=== PATIENT | female | born 2000 | race Caucasian/White ===

== ENCOUNTER 2021-02-13 20:57 | Emergency (ER) | payer BC ==
--- NOTE | 2021-02-13 20:59 | ERPHSYRPT ---
- History of Present Illness Time Seen by Provider: 02/13/21 20:59 Historian: patient Exam Limitations: no limitations Physician History: This is a 20-year-old white female who has not felt well for the last few days. 3 days ago she began having weakness and decreased appetite. 2 days ago she started having pain in the paramedical region which is now localized in the right lower portion of her abdomen. She has not had a fever. She has not had diarrhea. She has had worsening pain. She still has her gallbladder and appendix in place. She has not had vomiting. Patient has a history of ovarian cysts. She does not have any vaginal bleeding or vaginal discharge. Patient denies chest pain. She denies shortness of breath. Patient states she is allergic to morphine but has had Dilaudid in the past without any problems or issues. Timing/Duration: day(s) (3) Activities at Onset: none Quality: aching Abdominal Pain Onset Location: RLQ Pain Radiation: no radiation Severity of Pain-Max: mild (To moderate) Severity of Pain-Current: mild (To moderate) Associated Symptoms: loss of appetite, nausea, weakness, No chest pain, No diaphoresis, No diarrhea, No fever/chills, No shortness of breath, No vomiting Previous symptoms: no prior history Allergies/Adverse Reactions: morphine Allergy (Verified 02/13/21 21:12) Home Medications: Medroxyprogesterone Acetate 1 ml IM CLARIFY 02/13/21 [History] methylPREDNISolone [Medrol] 1 tab PO CLARIFY 02/13/21 [History] Travel Risk - International Travel Have you traveled outside of the country in past 3 weeks: No - Coronavirus Screening Are you exhibiting any of the following symptoms?: No Close contact with a COVID-19 positive Pt in past 14-21 Days: No - Review of Systems Constitutional: Weakness Eyes: No Symptoms Ears, Nose, & Throat: No Symptoms Respiratory: No Symptoms Cardiac: No Symptoms Abdominal/Gastrointestinal: Abdominal Pain, Nausea (Right lower quadrant), No Vomiting, No Diarrhea, No Constipation Genitourinary Symptoms: No Symptoms Musculoskeletal: No Symptoms Skin: No Symptoms Neurological: No Symptoms Psychological: No Symptoms Endocrine: No Symptoms Hematologic/Lymphatic: No Symptoms Immunological/Allergic: No Symptoms All Other Systems: Reviewed and Negative - Past Medical History Pertinent Past Medical History: No - Past Surgical History Past Surgical History: No - Nursing Vital Signs Nursing Vital Signs: Initial Vital Signs Temperature 98.1 F 02/13/21 21:15 Pulse Rate 80 02/13/21 21:15 Respiratory Rate 20 02/13/21 21:15 Blood Pressure 145/82 02/13/21 21:15 O2 Sat by Pulse Oximetry 100 02/13/21 21:15 Pain Scale Pain Intensity 9 - Physical Exam General Appearance: no apparent distress, alert, anxiety Eye Exam: PERRL/EOMI, eyes nml inspection Ears, Nose, Throat Exam: normal ENT inspection, moist mucous membranes Neck Exam: normal inspection, non-tender, supple, full range of motion Respiratory Exam: normal breath sounds, lungs clear, airway intact, No chest tenderness, No respiratory distress Cardiovascular Exam: regular rate/rhythm, normal heart sounds, normal peripheral pulses Gastrointestinal/Abdomen Exam: soft, normal bowel sounds, tenderness (Lower quadrant), guarding, rebound (Right lower quadrant) Pelvic Exam: not done Rectal Exam: not done Back Exam: normal inspection, normal range of motion, No CVA tenderness Extremity Exam: normal inspection, normal range of motion, pelvis stable Neurologic Exam: alert, oriented x 3, cooperative, betting clerk II-XII nml as tested, normal mood/affect, nml cerebellar function, nml station & gait, sensation nml Skin Exam: normal color, warm, dry Lymphatic Exam: No adenopathy SpO2 Interpretation: normal O2 Delivery: Room Air - Course Nursing assessment & vital signs reviewed: Yes Ordered Tests: Active Orders 24 hr Category Date Time Status IV Insertion STAT Care 02/13/21 21:40 Active ABDOMEN AND PELVIS W/0 CONTRAS [CT] Stat Exams 02/13/21 21:41 Taken AMYLASE Stat Lab 02/13/21 21:50 Completed CBC W DIFF Stat Lab 02/13/21 21:50 Completed CMP Stat Lab 02/13/21 21:50 Completed HCG,QUALITATIVE URINE Stat Lab 02/13/21 21:45 Completed LIPASE Stat Lab 02/13/21 21:50 Completed Lactic Acid Stat Lab 02/13/21 22:20 Completed UA W/RFX UR CULTURE Stat Lab 02/13/21 21:45 Completed Medication Summary Discontinued Medications Generic Name Dose Route Start Last Admin Trade Name Freq PRN Reason Stop Dose Admin Hydromorphone HCl 0.5 mg 02/13/21 21:40 02/13/21 22:47 Hydromorphone 1 Mg/1ml Inj 1 Mg/Ml Syringe IV 02/13/21 21:41 0.5 mg STAT ONE Administration Hydromorphone HCl Confirm 02/13/21 22:42 Hydromorphone 1 Mg/1ml Inj 1 Mg/Ml Syringe Administered 02/13/21 22:43 Dose 1 mg .ROUTE .STK-MED ONE Sodium Chloride 1,000 mls @ 999 mls/hr 02/13/21 21:40 02/13/21 22:54 Sodium Chloride 0.9% 1000 Ml IV 02/13/21 22:40 999 mls/hr .Q1H1M STA Administration Sodium Chloride Confirm 02/13/21 22:42 Sodium Chloride 0.9% 1000 Ml Administered 02/13/21 22:43 Dose 1,000 mls @ ud .ROUTE .STK-MED ONE Ondansetron HCl 4 mg 02/13/21 21:40 02/13/21 22:43 Ondansetron Hcl 4 Mg/2 Ml Vial IV 02/13/21 21:41 4 mg STAT ONE Administration Ondansetron HCl Confirm 02/13/21 22:41 Ondansetron Hcl 4 Mg/2 Ml Vial Administered 02/13/21 22:42 Dose 4 mg .ROUTE .STK-MED ONE Lab/Rad Data: Laboratory Result Diagrams 02/13/21 21:50 02/13/21 21:50 Laboratory Results 02/13/21 02/13/21 02/13/21 Range/Units 22:20 21:50 21:50 WBC 7.9 (4.0-10.5) K/mm3 RBC 4.09 L (4.1-5.4) M/mm3 Hgb 13.2 (12.0-16.0) gm/dl Hct 40.5 (35-47) % MCV 99.0 (78-100) fl MCH 32.3 H (26-32) pg MCHC 32.6 (32-36) g/dl RDW 12.6 (11.5-14.0) % Plt Count 309 (150-450) K/mm3 MPV 10.4 (7.5-11.0) fl Gran % 79.9 H (36.0-66.0) % Eos # (Auto) 0 (0-0.5) Absolute Lymphs (auto) 1.21 (1.0-4.6) Absolute Monos (auto) 0.37 (0.0-1.3) Lymphocytes % 15.3 L (24.0-44.0) % Monocytes % 4.7 (0.0-12.0) % Eosinophils % 0.0 (0.00-5.0) % Basophils % 0.1 (0.0-0.4) % Absolute Granulocytes 6.33 (1.4-6.9) Basophils # 0.01 (0-0.4) Sodium 137 (137-145) mmol/L Potassium 4.5 (3.5-5.1) mmol/L Chloride 106 (98-107) mmol/L Carbon Dioxide 22 (22-30) mmol/L Anion Gap 13.5 (5-15) MEQ/L BUN 20 H (7-17) mg/dL Creatinine 0.71 (0.52-1.04) mg/dL Estimated GFR > 60.0 ML/MIN Glucose 118 H (74-106) mg/dL Lactic Acid 2.3 H (0.4-2.0) Calcium 9.5 (8.4-10.2) mg/dL Total Bilirubin 0.50 (0.2-1.3) mg/dL AST 19 (14-36) U/L ALT 13 (0-35) U/L Alkaline Phosphatase 88 (38-126) U/L Serum Total Protein 7.6 (6.3-8.2) g/dL Albumin 4.5 (3.5-5.0) g/dL Amylase 61 (30-110) U/L Lipase 68 (23-300) U/L Urine Color (YELLOW) Urine Appearance (CLEAR) Urine pH (5-6) Ur Specific [place] (1.005-1.025) Urine Protein (Negative) Urine Ketones (NEGATIVE) Urine Blood (0-5) Goyo/ul Urine Nitrite (NEGATIVE) Urine Bilirubin (NEGATIVE) Urine Urobilinogen (0-1) mg/dL Ur Leukocyte Esterase (NEGATIVE) Urine WBC (Auto) (0-5) /HPF Urine RBC (Auto) (0-2) /HPF U Epithel Cells (Auto) (FEW) /HPF Urine Bacteria (Auto) (NEGATIVE) /HPF Urine Mucus (Auto) (NEGATIVE) /HPF Urine Culture Reflexed (NO) Urine Glucose (NEGATIVE) mg/dL Urine HCG, Qual (Negative) 02/13/21 02/13/21 Range/Units 21:45 21:45 WBC (4.0-10.5) K/mm3 RBC (4.1-5.4) M/mm3 Hgb (12.0-16.0) gm/dl Hct (35-47) % MCV (78-100) fl MCH (26-32) pg MCHC (32-36) g/dl RDW (11.5-14.0) % Plt Count (150-450) K/mm3 MPV (7.5-11.0) fl Gran % (36.0-66.0) % Eos # (Auto) (0-0.5) Absolute Lymphs (auto) (1.0-4.6) Absolute Monos (auto) (0.0-1.3) Lymphocytes % (24.0-44.0) % Monocytes % (0.0-12.0) % Eosinophils % (0.00-5.0) % Basophils % (0.0-0.4) % Absolute Granulocytes (1.4-6.9) Basophils # (0-0.4) Sodium (137-145) mmol/L Potassium (3.5-5.1) mmol/L Chloride (98-107) mmol/L Carbon Dioxide (22-30) mmol/L Anion Gap (5-15) MEQ/L BUN (7-17) mg/dL Creatinine (0.52-1.04) mg/dL Estimated GFR ML/MIN Glucose (74-106) mg/dL Lactic Acid (0.4-2.0) Calcium (8.4-10.2) mg/dL Total Bilirubin (0.2-1.3) mg/dL AST (14-36) U/L ALT (0-35) U/L Alkaline Phosphatase (38-126) U/L Serum Total Protein (6.3-8.2) g/dL Albumin (3.5-5.0) g/dL Amylase (30-110) U/L Lipase (23-300) U/L Urine Color YELLOW (YELLOW) Urine Appearance CLEAR (CLEAR) Urine pH 6.0 (5-6) Ur Specific [place] 1.024 (1.005-1.025) Urine Protein NEGATIVE (Negative) Urine Ketones NEGATIVE (NEGATIVE) Urine Blood MODERATE (0-5) Goyo/ul Urine Nitrite NEGATIVE (NEGATIVE) Urine Bilirubin NEGATIVE (NEGATIVE) Urine Urobilinogen NEGATIVE (0-1) mg/dL Ur Leukocyte Esterase NEGATIVE (NEGATIVE) Urine WBC (Auto) NONE (0-5) /HPF Urine RBC (Auto) 0-2 (0-2) /HPF U Epithel Cells (Auto) NONE (FEW) /HPF Urine Bacteria (Auto) NONE (NEGATIVE) /HPF Urine Mucus (Auto) SLIGHT (NEGATIVE) /HPF Urine Culture Reflexed NO (NO) Urine Glucose NEGATIVE (NEGATIVE) mg/dL Urine HCG, Qual NEGATIVE (Negative) - Progress Progress: improved, re-examined Progress Note: 02/13/21 23:02 CAT scan of the abdomen and pelvis without contrast shows no acute findings. Specifically there is no evidence of appendicitis. The gallbladder and bile ducts are normal. The reproductive organs are unremarkable as visualized. Counseled pt/family regarding: lab results, diagnosis, need for follow-up, rad results - Departure Departure Disposition: Home Clinical Impression: Abdominal pain, Nausea Condition: Stable Critical Care Time: No Referrals: APRIL MONTES [Primary Care Provider] - Follow up/PCP as directed Additional Instructions: Drink plenty of clear liquids prior to advancing your diet. Follow-up with your primary care physician for further management. Prescriptions: Ondansetron ODT 4 MG [Zofran Odt 4 mg] 4 mg PO Q6H PRN PRN #10 tablet PRN Reason: Vomiting
[2021-02-13 21:30] VITALS: PULSE 80
[2021-02-13] MEDS ORDERED: Hydromorphone 1 mg/ml Injection IV ONE (21:40)
[2021-02-13] MEDS ORDERED: Sodium Chloride 0.9% 1000 ML 1,000 ML IV STA (21:40)
[2021-02-13] MEDS ORDERED: Zofran 4 MG/2 ML VIAL IV ONE (21:40)
[2021-02-13 21:57] LABS: Absolute Neutrophil Ct (ANC) 6.33 (1.4-6.9); Basophil (Absolute #) 0.01 (0-0.4); Eosinophil (Absolute #) 0 (0-0.5); Hematocrit 40.5 % (35-47); Hemoglobin 13.2 gm/dl (12.0-16.0); Lymphocyte (Absolute #) 1.21 (1.0-4.6); Lymphocytes % 15.3 % (24.0-44.0); Mean Corpuscular Hemoglobin 32.3 pg (26-32); Mean Corpuscular Hgb Concent. 32.6 g/dl (32-36); Mean Platelet Volume 10.4 fl (7.5-11.0); Monocyte (Absolute #) 0.37 (0.0-1.3); Monocytes % 4.7 % (0.0-12.0); Neutrophil % 79.9 % (36.0-66.0); Platelet Count 309 K/mm3 (150-450); Red Blood Count 4.09 M/mm3 (4.1-5.4); Red Cell Distribution Width 12.6 % (11.5-14.0); White Blood Count 7.9 K/mm3 (4.0-10.5)
[2021-02-13 22:04] LABS: Appearance CLEAR (CLEAR); Bilirubin NEGATIVE (NEGATIVE); Blood MODERATE Ery/ul (0-5); Glucose NEGATIVE (NEGATIVE); Ketones NEGATIVE (NEGATIVE); Leukocyte Esterase NEGATIVE (NEGATIVE); Mucus SLIGHT /HPF (NEGATIVE); Nitrite NEGATIVE (NEGATIVE); Protein,Urine Dip NEGATIVE (Negative); RBC 0-2 /HPF (0-2); Specific Gravity 1.024 (1.005-1.025); Urobilinogen NEGATIVE mg/dL (0-1)
[2021-02-13 22:09] LABS: ALBUMIN 4.5 g/dL (3.5-5.0); ALKALINE PHOSPHATASE 88 U/L (38-126); AMYLASE 61 U/L (30-110); ANION GAP 13.5 MEQ/L (5-15); BLOOD UREA NITROGEN 20 mg/dL (7-17); CHLORIDE 106 mmol/L (98-107); Calcium 9.5 mg/dL (8.4-10.2); Carbon Dioxide 22 mmol/L (22-30); Creatinine 1 0.71 mg/dL (0.52-1.04); EST GLOMERULAR FILTRATION RATE > 60.0 ML/MIN; Glucose 118 mg/dL (74-106); LIPASE 68 U/L (23-300); Potassium 4.5 mmol/L (3.5-5.1); SGOT/AST 19 U/L (14-36); SGPT/ALT 13 U/L (0-35); SODIUM 137 mmol/L (137-145); Total Protein 7.6 g/dL (6.3-8.2)
[2021-02-13] MEDS ORDERED: Zofran 4 MG/2 ML VIAL ONE (22:41)
[2021-02-13] MEDS ORDERED: Sodium Chloride 0.9% 1000 ML 1,000 ML ONE (22:42)
[2021-02-13] MEDS ORDERED: Hydromorphone 1 mg/ml Injection ONE (22:42)
[2021-02-14 00:14] VITALS: O2SAT 97
[2021-02-14 00:15] VITALS: BP 129/56
--- NOTE | 2021-02-14 08:46 | XRAY ---
Indication: Right lower quadrant pain. Multiple contiguous axial images obtained through the abdomen and pelvis without contrast. Comparison: None Lung bases are clear. Heart not enlarged. Stomach mildly distended with food/fluid. Noncontrasted stomach and bowel loops appear nonobstructed with normal appendix. There is mild diffuse scattered colonic fecal debris greatest in the ascending colon. Tiny right adnexa free fluid presumed physiologic from rupture/leaking cyst. No free air. Contracted gallbladder without gallstones. Nonobstructing left renal punctate calculus. Remaining liver, gallbladder, pancreas, spleen, adrenal glands, kidneys, ureters, bladder, uterus, and aorta are unremarkable for noncontrast exam. Osseous structures intact. Impression: 1. Mild diffuse fecal stasis and nonobstructing left renal punctate calculus. 2. Remaining CT abdomen/pelvis without contrast exam is negative. Comment: Preliminary interpretation made by [facility]. No critical discrepancy.
== END 2021-02-14 00:15 | disposition home or self-care (01) ==
LOC: ED 20:57
DX: R10.31 Right lower quadrant pain (principal); R11.0 Nausea; R53.1 Weakness; Z79.52 Long term (current) use of systemic steroids
CPT/HCPCS: 36000; 36415; 74176; 80053; 81001; 82150; 83605; 83690; 84703; 85025; 96360; 96374; 96375; 99284; J1170; J2405

== ENCOUNTER 2022-02-28 10:12 | Emergency (ER) | payer BC ==
[2022-02-28 11:12] LABS: Absolute Neutrophil Ct (ANC) 5.19 x10^3/uL (1.4-6.9); Basophil (Absolute #) 0.03 x10^3/uL (0-0.4); Eosinophil % 0.1 % (0.00-5.0); Eosinophil (Absolute #) 0.01 x10^3/uL (0-0.5); Hematocrit 35.6 % (35-47); Hemoglobin 11.7 g/dL (12.0-16.0); Lymphocyte (Absolute #) 1.62 x10^3/uL (1.0-4.6); Lymphocytes % 22.6 % (24.0-44.0); Mean Cell Volume 96.2 fL (78-100); Mean Corpuscular Hemoglobin 31.6 pg (26-32); Mean Corpuscular Hgb Concent. 32.9 g/dL (32-36); Mean Platelet Volume 9.9 fL (7.5-11.0); Monocyte (Absolute #) 0.32 x10^3/uL (0.0-1.3); Monocytes % 4.5 % (0.0-12.0); Neutrophil % 72.3 % (36.0-66.0); Platelet Count 232 x10^3/uL (150-450); Red Cell Distribution Width 11.8 % (11.5-14.0); White Blood Count 7.2 x10^3/uL (4.0-10.5)
[2022-02-28] MEDS ORDERED: TORAdol 30 mg Injection IM ONE (11:15)
[2022-02-28 11:19] LABS: ADD URINE CULTURE? YES (NO); Appearance Clear (Clear); Bacteria Rare /HPF (None Seen); Bilirubin Negative (Negative); Blood Moderate (Negative); Epithelial Cells Few /HPF (None Seen); Glucose, Urine Negative (Negative); Hyaline Casts NONE SEEN /LPF (0-2); Ketones Trace (Negative); Leukocyte Esterase Trace (Negative); Nitrite Negative (Negative); Ph 5.5 (4.6-8.0); Protein,Urine Dip Negative (Negative); RBC 0-2 /HPF (0-5); Specific Gravity 1.025 (1.005-1.030); Urobilinogen 0.2 mg/dL (0.2)
[2022-02-28] MEDS ORDERED: TORAdol 30 mg Injection ONE (11:20)
--- NOTE | 2022-02-28 11:21 | ERPHSYRPT ---
- History of Present Illness Historian: patient Exam Limitations: no limitations Patient Subjective Stated Complaint: Abdominal pain Triage Nursing Assessment: Patient ambulated back to ED and transferred self to bed. Patient A+O X 3. Patient's skin pink, warm and dry. Patient complains of lower abdominal pain on and off since last Wed that keeps getting worse. Patient complains of constant sharp pain in lower abdomen 9/10. Abdomen soft and round with BS X 4. Patient complains of nausea, but denies vomiting today. Physician History: 21 yo wf w RLQ pain x 8 days. Pain is sharp, 9/10, and nothing makes it better or worse. pain does not radiate. She has had nausea, mild vomiting, but denies diarrhea/melena/hematochezia/dysuria/hematuria//fever/cough/coryza. She has had her gallbladder removed. Pt is finishing up Macrobid for a UTI. Timing/Duration: other (8 days) Activities at Onset: rest Quality: sharpness Abdominal Pain Onset Location: RLQ Pain Radiation: no radiation Severity of Pain-Max: severe Severity of Pain-Current: severe Modifying Factors: Improves With: nothing Associated Symptoms: denies symptoms, nausea, vomiting Previous symptoms: no prior history Allergies/Adverse Reactions: morphine Allergy (Verified 02/28/22 10:26) Home Medications: Medroxyprogesterone Acetate 1 ml IM CLARIFY 02/13/21 [History] Sertraline HCl [Zoloft] 1 tab PO HS 02/28/22 [History] Hx Tetanus, Diphtheria Vaccination/Date Given: Yes Hx Influenza Vaccination/Date Given: Yes Hx Pneumococcal Vaccination/Date Given: No Immunizations Up to Date: Yes Travel Risk - International Travel Have you traveled outside of the country in past 3 weeks: No - Coronavirus Screening Are you exhibiting any of the following symptoms?: No Close contact with a COVID-19 positive Pt in past 14-21 Days: No - Vaccine Status Have you recieved a Covid-19 vaccination: Yes [employer]: Modality - Vaccination Dates Date of 2cond Vaccination (if applicable): December 2020 - Review of Systems Constitutional: No Symptoms Eyes: No Symptoms Ears, Nose, & Throat: No Symptoms Respiratory: No Symptoms Cardiac: No Symptoms Abdominal/Gastrointestinal: No Symptoms, Abdominal Pain, Nausea, Vomiting Genitourinary Symptoms: No Symptoms Musculoskeletal: No Symptoms Skin: No Symptoms Neurological: No Symptoms Psychological: No Symptoms Endocrine: No Symptoms Hematologic/Lymphatic: No Symptoms Immunological/Allergic: No Symptoms - Past Medical History Pertinent Past Medical History: No Neurological History: No Pertinent History ENT History: No Pertinent History Cardiac History: No Pertinent History Respiratory History: Asthma Endocrine Medical History: No Pertinent History Musculoskeletal History: No Pertinent History GI Medical History: Gallbladder Disease History: Other Psycho-Social History: Anxiety Female Reproductive Disorders: No Pertinent History Other Medical History: Kidney stones - Past Surgical History Past Surgical History: No Neuro Surgical History: No Pertinent History Cardiac: No Pertinent History Respiratory: No Pertinent History Gastrointestinal: Exploratory Laparoscopy Genitourinary: No Pertinent History Musculoskeletal: Orthopedic Surgery Female Surgical History: No Pertinent History Other Surgical History: Upper GI surgery, lap to check for endometriosis - Social History Smoking Status: Never smoker Exposure to second hand smoke: Yes Drug Use: none Patient Lives Alone: No - Female History Hx Last Menstrual Period: depo Hx Now: No - Nursing Vital Signs Nursing Vital Signs: Initial Vital Signs Temperature 97.8 F 02/28/22 10:29 Pulse Rate 87 02/28/22 10:29 Respiratory Rate 18 02/28/22 10:29 Blood Pressure 134/79 02/28/22 10:29 O2 Sat by Pulse Oximetry 99 02/28/22 10:29 Pain Scale Pain Intensity 2 WNL - Physical Exam General Appearance: no apparent distress Eye Exam: PERRL/EOMI, eyes nml inspection Ears, Nose, Throat Exam: normal ENT inspection, TMs normal, pharynx normal, moist mucous membranes Neck Exam: normal inspection, non-tender, supple, full range of motion, No meningismus, No mass, No Brudzinski, No Kernig's, No carotid bruit Respiratory Exam: normal breath sounds, lungs clear, airway intact Cardiovascular Exam: regular rate/rhythm, normal heart sounds, normal peripheral pulses, No murmur Gastrointestinal/Abdomen Exam: soft, normal bowel sounds, tenderness (Mild RLQ TTP >RUQ TTP/No guarding or rebound) Back Exam: normal inspection, normal range of motion Extremity Exam: normal inspection, normal range of motion Neurologic Exam: alert, oriented x 3, cooperative, dairy specialist II-XII nml as tested, normal mood/affect, nml cerebellar function, nml station & gait, sensation nml, No motor deficits, No sensory deficit Skin Exam: normal color Lymphatic Exam: adenopathy SpO2 Interpretation: normal SpO2: 99 O2 Delivery: Room Air - Course Nursing assessment & vital signs reviewed: Yes - CT Exams Abdomen/Pelvis CT Interpretation: Discussed w/radiologist (Normal appendix/No ureterolithiasis) - Radiology Ultrasound Exam Pelvis Ultrasound: discussed w/radiologist (Fluid from possible ruptured cyst/Good blood flow B) Ordered Tests: Active Orders 24 hr Category Date Time Status ABDOMEN AND PELVIS W/0 CONTRAS [CT] Stat Exams 02/28/22 11:47 Completed PELVIS TRANS VAGINAL [US] Stat Exams 02/28/22 12:58 Completed AMYLASE Stat Lab 02/28/22 10:55 Completed CBC W DIFF Stat Lab 02/28/22 10:55 Completed CMP Stat Lab 02/28/22 10:55 Completed CULTURE,URINE Stat Lab 02/28/22 Received HCG QUALITATIVE,SERUM Stat Lab 02/28/22 10:55 Completed LIPASE Stat Lab 02/28/22 10:55 Completed UA W/RFX UR CULTURE Stat Lab 02/28/22 Completed Medication Summary Discontinued Medications Generic Name Dose Route Start Last Admin Trade Name Freq PRN Reason Stop Dose Admin Ceftriaxone Sodium 1,000 mg 02/28/22 13:58 02/28/22 14:03 Ceftriaxone Sodium 1000 Mg Inj Vial IM 02/28/22 13:59 1,000 mg STAT ONE Administration Ceftriaxone Sodium Confirm 02/28/22 14:02 Ceftriaxone Sodium 1000 Mg Inj Vial Administered 02/28/22 14:03 Dose 1,000 mg .ROUTE .STK-MED ONE Ketorolac Tromethamine 15 mg 02/28/22 11:15 02/28/22 11:21 Ketorolac Tromethamine 30 Mg/Ml Inj IM 02/28/22 11:16 15 mg STAT ONE Administration Ketorolac Tromethamine Confirm 02/28/22 11:20 Ketorolac Tromethamine 30 Mg/Ml Inj Administered 02/28/22 11:21 Dose 30 mg .ROUTE .STK-MED ONE Lidocaine HCl Confirm 02/28/22 14:03 Lidocaine Hcl 1% 20 Ml Mdv 20 Ml Ml Administered 02/28/22 14:04 Dose 3 ml .ROUTE .STK-MED ONE Lab/Rad Data: Laboratory Result Diagrams 02/28/22 10:55 02/28/22 10:55 Laboratory Results 01/02/28/22 02/28/22 Range/Units Unknown 10:55 10:55 WBC (4.0-10.5) x10^3/uL RBC (4.1-5.4) x10^6/uL Hgb (12.0-16.0) g/dL Hct (35-47) % MCV (78-100) fL MCH (26-32) pg MCHC (32-36) g/dL RDW (11.5-14.0) % Plt Count (150-450) x10^3/uL MPV (7.5-11.0) fL Gran % (36.0-66.0) % Immature Gran % (Auto) (0.00-0.4) % Nucleat RBC Rel Count (0.00-0.1) % Eos # (Auto) (0-0.5) x10^3/uL Immature Gran # (Auto) (0.00-0.03) x10^3u/L Absolute Lymphs (auto) (1.0-4.6) x10^3/uL Absolute Monos (auto) (0.0-1.3) x10^3/uL Absolute Nucleated RBC (0.00-0.01) x10^3u/L Lymphocytes % (24.0-44.0) % Monocytes % (0.0-12.0) % Eosinophils % (0.00-5.0) % Basophils % (0.0-0.4) % Absolute Granulocytes (1.4-6.9) x10^3/uL Basophils # (0-0.4) x10^3/uL Sodium 137 (137-145) mmol/L Potassium 4.1 (3.5-5.1) mmol/L Chloride 108 H (98-107) mmol/L Carbon Dioxide 25 (22-30) mmol/L Anion Gap 8.9 (5-15) MEQ/L BUN 16 (7-17) mg/dL Creatinine 0.59 (0.52-1.04) mg/dL Estimated GFR > 60.0 ML/MIN Glucose 89 (74-106) mg/dL Calcium 9.1 (8.4-10.2) mg/dL Total Bilirubin 0.50 (0.2-1.3) mg/dL AST 37 H (14-36) U/L ALT 35 (0-35) U/L Alkaline Phosphatase 85 (38-126) U/L Serum Total Protein 7.2 (6.3-8.2) g/dL Albumin 4.4 (3.5-5.0) g/dL Amylase 79 (30-110) U/L Lipase 35 (23-300) U/L Serum , Qual NEGATIVE (Negative) Urine Color Yellow (Yellow) Urine Appearance Clear (Clear) Urine pH 5.5 (4.6-8.0) Ur Specific [place] 1.025 (1.005-1.030) Urine Protein Negative (Negative) Urine Glucose (UA) Negative (Negative) mg/dL Urine Ketones Trace A (Negative) Urine Blood Moderate A (Negative) Urine Nitrite Negative (Negative) Urine Bilirubin Negative (Negative) Urine Urobilinogen 0.2 (0.2) mg/dL Ur Leukocyte Esterase Trace A (Negative) U Hyaline Cast (Auto) NONE SEEN (0-2) /LPF Urine Microscopic RBC 0-2 (0-5) /HPF Urine Microscopic WBC 3-5 (0-5) /HPF Ur Epithelial Cells Few (None Seen) /HPF Urine Bacteria Rare A (None Seen) /HPF Urine Culture Reflexed YES (NO) 02/28/22 Range/Units 10:55 WBC 7.2 (4.0-10.5) x10^3/uL RBC 3.70 L (4.1-5.4) x10^6/uL Hgb 11.7 L (12.0-16.0) g/dL Hct 35.6 (35-47) % MCV 96.2 (78-100) fL MCH 31.6 (26-32) pg MCHC 32.9 (32-36) g/dL RDW 11.8 (11.5-14.0) % Plt Count 232 (150-450) x10^3/uL MPV 9.9 (7.5-11.0) fL Gran % 72.3 H (36.0-66.0) % Immature Gran % (Auto) 0.1 (0.00-0.4) % Nucleat RBC Rel Count 0.0 (0.00-0.1) % Eos # (Auto) 0.01 (0-0.5) x10^3/uL Immature Gran # (Auto) 0.01 (0.00-0.03) x10^3u/L Absolute Lymphs (auto) 1.62 (1.0-4.6) x10^3/uL Absolute Monos (auto) 0.32 (0.0-1.3) x10^3/uL Absolute Nucleated RBC 0.00 (0.00-0.01) x10^3u/L Lymphocytes % 22.6 L (24.0-44.0) % Monocytes % 4.5 (0.0-12.0) % Eosinophils % 0.1 (0.00-5.0) % Basophils % 0.4 (0.0-0.4) % Absolute Granulocytes 5.19 (1.4-6.9) x10^3/uL Basophils # 0.03 (0-0.4) x10^3/uL Sodium (137-145) mmol/L Potassium (3.5-5.1) mmol/L Chloride (98-107) mmol/L Carbon Dioxide (22-30) mmol/L Anion Gap (5-15) MEQ/L BUN (7-17) mg/dL Creatinine (0.52-1.04) mg/dL Estimated GFR ML/MIN Glucose (74-106) mg/dL Calcium (8.4-10.2) mg/dL Total Bilirubin (0.2-1.3) mg/dL AST (14-36) U/L ALT (0-35) U/L Alkaline Phosphatase (38-126) U/L Serum Total Protein (6.3-8.2) g/dL Albumin (3.5-5.0) g/dL Amylase (30-110) U/L Lipase (23-300) U/L Serum , Qual (Negative) Urine Color (Yellow) Urine Appearance (Clear) Urine pH (4.6-8.0) Ur Specific [place] (1.005-1.030) Urine Protein (Negative) Urine Glucose (UA) (Negative) mg/dL Urine Ketones (Negative) Urine Blood (Negative) Urine Nitrite (Negative) Urine Bilirubin (Negative) Urine Urobilinogen (0.2) mg/dL Ur Leukocyte Esterase (Negative) U Hyaline Cast (Auto) (0-2) /LPF Urine Microscopic RBC (0-5) /HPF Urine Microscopic WBC (0-5) /HPF Ur Epithelial Cells (None Seen) /HPF Urine Bacteria (None Seen) /HPF Urine Culture Reflexed (NO) - Progress Progress: improved Progress Note: 02/28/22 13:59 Pain improved w 15mg IM toradol Appendix Normal on CT Ovaries w good blood flow B, so no evidence of torsion Small amount of cul de sac fluid which could be due to possible ruptured ovarian cyst UA w trace Leukocyte esterase and mod blood on dip and 3-5 WBC/0-2 RBC's/rare Bacteria which could be possible residual UTI so 1gm IM rocephin given No food or housing insecurities noted Nursing note and vital signs reviewed All labs CT scan of abdomen/Pelvic ultrasound results reviewed and shared w pt Nursing note and vital signs reviewed 02/28/22 14:03 02/28/22 14:04 02/28/22 14:59 Counseled pt/family regarding: lab results, diagnosis, need for follow-up, rad results - Departure Departure Disposition: Home Clinical Impression: Abdominal pain, Ruptured ovarian cyst, UTI (urinary tract infection) Condition: Stable Critical Care Time: No Referrals: APRIL MONTES [Primary Care Provider] - Follow up/PCP as directed Instructions: Urinary Tract Infection, Adult (DC), Severe Abdominal Pain, Adult (DC) Additional Instructions: Follow up with your family MD or Ob-director process engineering Lodine as needed for pain Finish up your antibiotic Return to ER for increasing pain or temperature greater than 100.5 Prescriptions: Etodolac 400 mg [Lodine 400 mg] 400 mg PO BIDPRN PRN #12 tablet PRN Reason: Pain
[2022-02-28 11:29] LABS: ALBUMIN 4.4 g/dL (3.5-5.0); ALKALINE PHOSPHATASE 85 U/L (38-126); AMYLASE 79 U/L (30-110); ANION GAP 8.9 MEQ/L (5-15); BLOOD UREA NITROGEN 16 mg/dL (7-17); CHLORIDE 108 mmol/L (98-107); Calcium 9.1 mg/dL (8.4-10.2); Carbon Dioxide 25 mmol/L (22-30); Creatinine 1 0.59 mg/dL (0.52-1.04); EST GLOMERULAR FILTRATION RATE > 60.0 ML/MIN; Glucose 89 mg/dL (74-106); LIPASE 35 U/L (23-300); Potassium 4.1 mmol/L (3.5-5.1); SGOT/AST 37 U/L (14-36); SGPT/ALT 35 U/L (0-35); SODIUM 137 mmol/L (137-145); Total Protein 7.2 g/dL (6.3-8.2)
--- NOTE | 2022-02-28 12:53 | XRAY ---
Indication: Hematuria. Right lower quadrant pain. Nausea and vomiting. Multiple contiguous axial images obtained through the abdomen and pelvis without contrast using renal stone protocol. Comparison: February 13, 2021 Lung bases clear. Heart not enlarged. Left mid kidney demonstrates 2-3 mm calculus. Right kidney demonstrates faint nephrocalcinosis. No hydronephrosis, hydroureter, or evidence for obstructive uropathy in either system. Noncontrasted stomach and bowel loops appear nonobstructed with normal appendix. There is now mild diffuse scattered colonic fecal debris. Interval cholecystectomy. No free fluid/air. Remaining liver, pancreas, spleen, adrenal glands, kidneys, ureters, bladder, uterus, and aorta are unremarkable for noncontrast exam. Osseous structures intact. Impression: 1. Nonobstructing faint right nephrocalcinosis and 2-3 mm left calculus. 2. New mild diffuse fecal stasis. 3. Remaining CT abdomen/pelvis without contrast exam is negative.
--- NOTE | 2022-02-28 13:45 | XRAY ---
Indication: Right lower quadrant pain. Two-dimensional transvaginal pelvic sonogram performed. Comparison: None Uterus is retroflexed measuring 6.9 x 3.7 x 4.6 cm. No focal solid/cystic uterine mass. Endometrial stripe measures 2.6 mm. Tiny sliver of nonspecific fluid in the endometrial cavity. No focal endometrial cavity mass. Right ovary measures 1.7 x 3.0 x 1.8 cm and the left measures 1.3 x 2.2 x 1.6 cm. Normal follicular cysts and perfusion bilaterally. Tiny cul-de-sac fluid presumed physiologic from rupture/leaking cyst. Impression: Tiny nonspecific endometrial fluid and tiny physiologic cul-de-sac fluid. Remaining transvaginal pelvic sonogram is negative.
[2022-02-28 13:57] VITALS: O2SAT 99
[2022-02-28] MEDS ORDERED: Rocephin 1000 MG INJ IM ONE (13:58)
[2022-02-28] MEDS ORDERED: Rocephin 1000 MG INJ ONE (14:02)
[2022-02-28] MEDS ORDERED: XYLOCAINE 1% HCL 20 ML MDV ONE (14:03)
[2022-02-28 14:29] VITALS: BP 110/60; PULSE 64
== END 2022-02-28 14:30 | disposition home or self-care (01) ==
LOC: ED 10:12
DX: N39.0 Urinary tract infection, site not specified (principal); N83.209 Unspecified ovarian cyst, unspecified side; R10.31 Right lower quadrant pain; R11.2 Nausea with vomiting, unspecified; Z79.899 Other long term (current) drug therapy
CPT/HCPCS: 36415; 74176; 76830; 80053; 81001; 82150; 83690; 84703; 85025; 87086; 96372; 99284; J0696; J1885